=== PATIENT | female | born 1940 | race Caucasian/White ===

== ENCOUNTER → 2016-10-10 | Outpatient (CLI) | payer MEDICARE, BC ==
[~2016-10-10] MED LIST: ASPIRIN81 M1 PO; ATENOLOL50 MG PO; GLUCOTROL PO; IBUPROFEN800 MG PO; LOSARTAN POTAS100 MG PO; MACROBID100 MG PO; METFORMIN PO; PHENERGAN25 MG PO; TENORMIN50 MG PO; WELCHOL625 MG PO
--- NOTE | ~2016-10-10 | MY7 ---
[facility] A Service of [facility] RADIOLOGY TEXT RESULTS PATIENT: GEETA CLEMENS LOCATION: [facility] : 40 UNIT #: [id number] AGE: [address]: Michael Staples MD SEX: F ORDER DR: [id number] [facility] [address] [place], [place] [address] [id number] O MR#: [id number] Acc #: [id number] NAME: GEETA CLEMENS. : 1940 SEX: F STUDY DATE/TIME: 10/10/2016 9:31 UNIT: [facility] ROOM: STUDY DESCRIPTION: MY Mammogram Dx Dig Lt Attending Physician: Michael Staples M.D. Ordering Physician: Michael Staples M.D. Primary Care Physician: Michael Staples M.D. MEDICAL IMAGING REPORT This report is preliminary unless electronic signature is present EXAM Left breast digital diagnostic mammogram with CAD. DATE 10/10/2016 HISTORY 6-month followup left breast nodule. A 4 mm circumscribed nodule seen within the central left breast on a screening mammogram from 03/18/2016. It was less conspicuous on followup diagnostic left breast mammogram from 04/16/2016 without abnormal sonographic correlate at that time. 6 month followup was recommended to document stability. COMPARISON Bilateral screening mammogram 03/18/2016, 03/16/2015, 03/11/2013. Left breast digital diagnostic mammogram and ultrasound 04/06/2016. TECHNIQUE CC and MLO and true ML views were obtained of the left breast utilizing digital technique and reviewed with an FDA-approved CAD device. FINDINGS Round markers were placed over the left breast denoting skin lesions. Linear marker was placed at the superior left breast near the 12-1 o'clock axis denoting a scar. Spot compression imaging was performed of the left breast in the CC and MLO planes. The previously seen 4 mm nodular density in the central third of the left breast near the posterior nipple line, documented on 03/18/2016, has no abnormal correlate today. It is not visualized on either the standard 3 plain views, nor upon the spot compression images. This suggests it STS. [facility] A Service of [facility] RADIOLOGY TEXT RESULTS PATIENT: GEETA CLEMENS LOCATION: [facility] : 40 UNIT #: [id number] AGE: [address]: Michael Staples MD SEX: F ORDER DR: represented a benign etiology such as a tiny cyst or involuted intramammary lymph node. No suspicious cluster of microcalcifications or nonsurgical architectural distortion is seen. IMPRESSION Left breast BIRADS 2, benign findings. Previously described 4 mm nodular density in the central third of left breast has resolved, in keeping with a benign finding. There are no new or suspicious findings to suggest malignancy. The patient is recommended to return for routine bilateral screening mammograms cycle due in February 2017. Patient is advised to continue monthly self-breast examination and/or physician physical examination. The findings and recommendations were discussed with the patient today in the radiology department. Patients over the age of 40 are entered into a reminder system with target due date for the next mammogram. A result letter will also be sent to the patient. BIRADS: 2 Benign finding. Dictated by... Johanna Rodriguez M.D. THIS IS AN ELECTRONICALLY VERIFIED REPORT Johanna Rodriguez M.D. at 10/11/2016 7:08 AM RAVI/yessenia TD: 10/10/2016 12:52 JOB #: [id number] MEDICAL IMAGING REPORT Page 1 of 1 COPY
== END | disposition home or self-care (01) ==
LOC: CMAM 09:12
DX: N63 Unspecified lump in breast (principal); R92.8 Other abnormal and inconclusive findings on diagnostic imaging of breast
CPT/HCPCS: G0206